=== PATIENT | male | born 1985 | race Caucasian/White ===

== ENCOUNTER 2019-06-29 09:02 | Day surgery (SDC) | payer MEDICAID ==
[~2019-06-29] VITALS: Ht 180.3 cm; Wt 158.8 kg
[2019-06-29] MEDS ORDERED: fentaNYL 0.05 MG/ML VIAL ONE (10:37)
[2019-06-29] MEDS ORDERED: LIDOCAINE 2% 100 MG/5 ML UJET TP ONE (10:38)
[2019-06-29] MEDS ORDERED: MIDAZOLAM 2 MG/2 ML VIAL ONE ×2 (10:38)
[2019-06-29] MEDS ORDERED: MIDAZOLAM 2 MG/2 ML VIAL IVP ONE (11:50)
[2019-06-29] MEDS ORDERED: fentaNYL 0.05 MG/ML VIAL IVP ONE (11:50)
== END 2019-06-29 12:15 | disposition home or self-care (01) ==
LOC: MMU 09:02 → MDS 09:02
PROVIDERS: ATTEND Internal Medicine Gastroenterology
DX: Z12.11 Encounter for screening for malignant neoplasm of colon (principal); K21.0 Gastro-esophageal reflux disease with esophagitis; K31.89 Other diseases of stomach and duodenum; I10 Essential (primary) hypertension; E78.00 Pure hypercholesterolemia, unspecified; E66.01 Morbid (severe) obesity due to excess calories; Z86.010 Personal history of colon polyps; Z79.899 Other long term (current) drug therapy; Z68.42 Body mass index [BMI] 45.0-49.9, adult
CPT/HCPCS: 36415; 43239; 45378; 86677; J2250; J3010

== ENCOUNTER 2023-05-27 11:18 | Day surgery (SDC) | payer OTHER ==
[~2023-05-27] VITALS: Ht 180.3 cm; Wt 157.4 kg
[2023-05-27] MEDS ORDERED: MIDAZOLAM 5 MG/5 ML VIAL ONE (12:32)
[2023-05-27] MEDS ORDERED: fentaNYL citrate 0.05 MG/ML VIAL ONE (12:32)
[2023-05-27] MEDS ORDERED: MIDAZOLAM 2 MG/2 ML VIAL IVP ONE (13:15)
== END 2023-05-27 13:40 | disposition home or self-care (01) ==
LOC: MDS 11:18 → MMU 11:20 → MDS 13:40
PROVIDERS: ATTEND Internal Medicine Gastroenterology
DX: K30 Functional dyspepsia (principal); K20.90 Esophagitis, unspecified without bleeding; K44.9 Diaphragmatic hernia without obstruction or gangrene; I10 Essential (primary) hypertension; E78.5 Hyperlipidemia, unspecified; K21.9 Gastro-esophageal reflux disease without esophagitis; E66.01 Morbid (severe) obesity due to excess calories; Z68.42 Body mass index [BMI] 45.0-49.9, adult; Z79.899 Other long term (current) drug therapy
CPT/HCPCS: 36415; 43239; 86677; J2250; J3010